=== PATIENT | male | born 1990 | race Caucasian/White ===

== ENCOUNTER 2024-03-27 08:37 | Emergency (ER) | payer MEDICAID, OTHER ==
[~2024-03-27] VITALS: Ht 180.3 cm; Wt 94.0 kg
[2024-03-27 08:47] VITALS: O2SAT 99
[2024-03-27] MEDS ORDERED: AMOXICILLIN/POTASSIUM CLAVULANATE 875/125MG TAB PO ONE (09:15)
[2024-03-27] MEDS: AMOXICILLIN/POTASSIUM CLAVULANATE 875/125MG TAB PO NR (09:35)
[2024-03-27] MEDS: ACETAMINOPHEN 325MG TABLET PO ONE (09:35)
[2024-03-27] MEDS: IBUPROFEN 400MG TABLET PO ONE (09:35)
[2024-03-27] MEDS: DEXAMETHASONE 4MG TABLET PO ONE (09:36)
[2024-03-27] MEDS ORDERED: IBUP-2028 MT (11:05)
[2024-03-27] MEDS ORDERED: TOPUD PO (11:05)
[2024-03-27] MEDS ORDERED: AMOX1TAB16 MT (11:05)
[2024-03-27 11:17] VITALS: BP 128/71; PULSE 100; RESP 20; TEMP 99.7
== END 2024-03-27 11:18 | disposition home or self-care (01) ==
LOC: ER 08:37
DX: J02.0 Streptococcal pharyngitis (principal); Z20.822 Contact with and (suspected) exposure to COVID-19
CPT/HCPCS: 99284; 87426; 87430; 87070; 87804 ×2; 87077; J8540